=== PATIENT | female | born 1955 | race Caucasian/White ===

== ENCOUNTER 2021-06-05 11:45 | Outpatient (CLI) | payer MEDICARE, SELFPAY ==
--- NOTE | 2021-06-05 11:57 | XR_ITS ---
WS: [id number] PA and lateral chest, 06/05/2021 Clinical Data: COUGH Comparison: None. Findings: No nodules or masses are seen. There are clips in the right hilum extending into the right lower lobe and the patient may have had a right lower lobectomy. There is probable scarring of the r ight pleural base. The left lung is clear. There is right apical thickening and old right superior ri b fractures. No pneumonia or pneumothorax is noted. The heart size is probably normal. The aortic arc h and descending aorta show tortuosity. XR/XR chest 2V* [id number] Impression: 1. Probable chronic changes at right lung base and right lung apex. 2. Atherosclerosis. 3. Negative for acute pneumonia.
== END 2021-06-05 11:46 | disposition home or self-care (01) ==
PROVIDERS: PCP Family Medicine; Visit Provider Family Medicine
DX: R05 Cough (principal); U07.1 COVID-19; I70.90 Unspecified atherosclerosis
CPT/HCPCS: 71046

== ENCOUNTER 2021-10-06 09:20 | Outpatient (CLI) | payer MEDICARE, SELFPAY ==
--- NOTE | 2021-10-06 09:39 | XR_ITS ---
WS: [id number] Right knee, 3 views, 10/06/2021 Clinical Data: R KNEE PAIN Comparison: Right knee, 06/17/2019. Findings: There is a right knee arthroplasty in good position. No loosening is seen. There are no fractures or dislocations. The soft tissues are normal. XR/XR knee RT 3V* [id number] Impression: 1. Right knee arthroplasty. 2. No fractures or dislocations.
== END 2021-10-06 09:21 | disposition home or self-care (01) ==
PROVIDERS: PCP Family Medicine; Visit Provider Family Medicine
DX: M25.561 Pain in right knee (principal); Z96.651 Presence of right artificial knee joint
CPT/HCPCS: 73562

== ENCOUNTER 2022-01-30 08:01 | Outpatient (CLI) | payer MEDICARE, SELFPAY ==
--- NOTE | 2022-01-30 08:07 | MR_ITS ---
WS: [id number] MRI HEAD WITH CONTRAST WITH ATTENTION TO THE INTERNAL AUDITORY CANALS TECHNIQUE: Sagittal T1, T2 axial, T2 axial flair, axial susceptibility weighted imaging, axial diffus ion weighted images, and coronal T2 images were obtained. Pre and post T1 axial and post T1 coronal i mages. ADC and FSPGR images. Post gadolinium images with attention to the internal auditory canals. A xial fiesta imaging. CLINICAL INFORMATION: SUDDEN IDIOPATHIC HEARING LOSS, LEFT EAR COMPARISON: CT 2016 FINDINGS: No evidence of restricted diffusion to suggest acute ischemia. Ventricular system and basal cisterns are patent. Mild small vessel changes. Small vessel changes in the marley. Mild parenchymal volume loss . Normal posterior fossa. Normal vascular flow voids at the skull base. No extra-axial fluid collecti ons. No evidence of mass or mass effect. No hemosiderin on susceptibly weighted images. Normal optic chiasm and pituitary infundibulum. Proxim al 7th and 8th cranial nerves are normal in appearance. Temporal lobes and hippocampal formations are normal. Normal trigeminal nerve root entry zones. No evidence of enhancing IAC or CP angle mass. No abnormal intracranial enhancement. Paranasal sinuse s are well aerated. Mild mucosal thickening LEFT mastoid tip. RIGHT mastoid air cells well aerated. N ormal posterior nasopharynx. No abnormal intraparenchymal enhancement. Normal dural venous sinuses. MR/MR iac's wo/w con* [id number] IMPRESSION: 1. No evidence of restricted diffusion to suggest acute ischemia. 2. Mild small vessel changes with mild parenchymal volume loss. Small vessel c hanges in the marley. 3. No evidence of enhancing IAC or CP angle mass. Normal trigeminal nerve root entry zones. 4. Mild mucosal thickening LEFT mastoid tip. 5. Paranasal sinuses are well aerated. RIGHT mastoid air cells well aerated. 6. No abnormal intracranial enhancement 7. No hemosiderin on susceptibly weighted images.
== END 2022-01-30 08:02 | disposition home or self-care (01) ==
PROVIDERS: PCP Family Medicine; Visit Provider Otolaryngology
DX: H90.3 Sensorineural hearing loss, bilateral (principal)
CPT/HCPCS: 70553

== ENCOUNTER → 2024-02-11 14:20 | Outpatient (BNVA) | payer MEDICARE, SELFPAY | PROVIDERS: PCP Family Medicine; Visit Provider Family Medicine | DX: E87.5 Hyperkalemia (principal) | CPT/HCPCS: 80048 ==

== ENCOUNTER → 2024-03-02 10:13 | Outpatient (BNVA) | payer MEDICARE, SELFPAY | PROVIDERS: PCP Family Medicine; Visit Provider Family Medicine | DX: E87.5 Hyperkalemia (principal) | CPT/HCPCS: 80048 ==

== ENCOUNTER 2024-03-11 07:12 | Outpatient (CLI) | payer MEDICARE, SELFPAY ==
--- NOTE | 2024-03-11 07:15 | USCV_ITS ---
Valeria Sanchez Age: 68 Gender: F : 1955 Exam Date: 03/11/2024 07:21 Ordering Phys: Gerardo Johnston DO Technologist: FRANCO Exam Location: [facility] [place] Indication: Pain and swelling HISTORY: Lower extremity pain. Lower extremity swelling. PROCEDURES: Venous duplex imaging was performed in only the left lower extremity. The following venous structures were evaluated: common femoral vein, profunda vein, proximal portion of the greater saphenous vein, superficial femoral vein, and the popliteal vein. In addition, the posterior tibial and peroneal trunk were evaluated. Serial compression, augmentation maneuvers, and spectral Doppler flow evaluation were performed. FINDINGS: Normal 2-D Doppler and augmentation and compressibility throughout the lower extremity venous structures. Additional imaging through the proximal calf veins also reveals no thrombus. Limited evaluation of the greater saphenous vein is patent with no thrombus. CONCLUSIONS No DVT left lower extremity. Dr. Wninie Woodson DO (Electronically Signed) Final Date: 11 Mar 2024 09:09 S
== END 2024-03-11 07:13 | disposition home or self-care (01) ==
LOC: RAD 07:12
PROVIDERS: PCP Family Medicine; Visit Provider Family Medicine
DX: R60.0 Localized edema (principal)
CPT/HCPCS: 93971

== ENCOUNTER → 2024-07-13 10:32 | Outpatient (BNVA) | payer MEDICARE, SELFPAY | PROVIDERS: PCP Family Medicine; Visit Provider Podiatrist Foot & Ankle Surgery | DX: M79.672 Pain in left foot (principal); M21.621 Bunionette of right foot; M21.622 Bunionette of left foot; M20.5X2 Other deformities of toe(s) (acquired), left foot | CPT/HCPCS: 73630; 99203 ==

== ENCOUNTER → 2024-08-25 09:41 | Outpatient (BNVA) | payer MEDICARE, SELFPAY | PROVIDERS: PCP Family Medicine; Visit Provider Family Medicine | DX: R06.02 Shortness of breath (principal); I10 Essential (primary) hypertension; E03.9 Hypothyroidism, unspecified | CPT/HCPCS: 80053; 80061; 84443; 85025 ==

== ENCOUNTER → 2025-09-07 11:19 | Outpatient (BNVA) | payer MEDICARE, SELFPAY | PROVIDERS: PCP Family Medicine; Visit Provider Family Medicine | DX: Z79.899 Other long term (current) drug therapy (principal); E87.5 Hyperkalemia; M19.90 Unspecified osteoarthritis, unspecified site; G89.29 Other chronic pain | CPT/HCPCS: 80053; 80061; 82306; 85025 ==